=== PATIENT | female | born 1990 | race American Indian/Alaskan Native ===

== ENCOUNTER 2020-06-10 14:54 | Outpatient (CLI) | payer BC, OTHER ==
[2020-06-10 15:46] LABS: Blood Urea Nitrogen 8 mg/dL (7-17)
--- NOTE | 2020-06-10 17:37 | Cat Scan Report ---
CT PELVIS WITH IV CONTRAST INDICATION: OVARIAN MASS. COMPARISON: None available. TECHNIQUE: Axial CT images were obtained through the pelvis after 100 cc Omnipaque [address] scans at this location are performed using CT dose reduction for ALARA by means of automated exposure cont rol. FINDINGS: BOWEL: Normal. APPENDIX: Normal. PERITONEUM: No free fluid. No free air. No fluid collection. LYMPH NODES: No significant adenopathy. ARTERIES: No significant abnormality. VEINS: No significant abnormality. URINARY BLADDER: Normal. REPRODUCTIVE ORGANS: A hyperdense uterine fundal mass measures 5.7 x 5.1 cm on image 55 of series 2. A septated right ovarian cyst measures 6.5 x 4.7 cm on image 50 of series 2. No other significant abn ormality. ADDITIONAL FINDINGS: None. SKELETAL SYSTEM: No acute abnormality. IMPRESSION: 1. Probable uterine fibroid as above. 2. Septated right ovarian cyst as above is favored to be benign in a patient of this age. MRI of the pelvis with and without contrast may be helpful for further characterization. Otherwise, a follow-up pelvic ultrasound in one year is recommended. Signer Name: Juan Osorio MD Signed: 06/10/2020 5:33 PM Workstation Name: [id number]
== END 2020-06-10 14:55 | disposition home or self-care (01) ==
LOC: CT 14:54
PROVIDERS: ATTEND Obstetrics & Gynecology
DX: D25.9 Leiomyoma of uterus, unspecified (principal); N83.201 Unspecified ovarian cyst, right side
CPT/HCPCS: 36415; 72193; 82565; 84520; Q9967

== ENCOUNTER 2020-07-05 09:05 | Day surgery (SDC) | payer BC, OTHER ==
[2020-07-01 13:48] LABS: Hematocrit 30.1 % (30.3-42.9); Hemoglobin 9.6 gm/dl (10.1-14.3); Mean Corpuscular HGB Conc 32 % (30-34); Mean Corpuscular Volume 76 fl (79-97); Platelet Count 325 K/mm3 (140-440); Red Blood Count 3.98 M/mm3 (3.65-5.03)
[2020-07-01 13:53] LABS: Red Cell Distribution Width 22.8 % (13.2-15.2)
--- NOTE | 2020-07-04 17:36 | History and Physical Report ---
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 Operations: Hysteroscopy: (2014) with polypectomy benign D&C: (2014) Oral Abnormal PAP: negative Infection History HIV Risk Eval: no Hx of STD: None Active Medications (reviewed today): DOCUSATE SODIUM 100 MG ORAL CAPSULE (DOCUSATE SODIUM) 1 tab po daily SAMBUCUS ELDERBERRY 50 MG/5ML ORAL SYRUP (BLACK ELDERBERRY) VITAMIN D (CHOLECALCIFEROL) 25 MCG (1000 UT) ORAL CAPSULE (CHOLECALCIFEROL) Current Allergies (reviewed today): No known allergies Past Medical History: Allergies-seasonal Past Surgical History: Reviewed history from 12/26/2018 and no changes required: Hysteroscopy: (2014) with polypectomy benign D&C: (2014) Oral Family History Summary: Reviewed history Last on 03/23/2020 and no changes required:07/04/2020 Other Family Member - Has No Family History of Uterine Cancer - Entered On: 01/23/2019 Other Family Member - Has No Family History of Small Bowel Cancer - Entered On: 01/23/2019 Other Family Member - Has No Family History of Stomach Cancer - Entered On: 01/23/2019 Other Family Member - Has No Family History of Pancreatic Cancer - Entered On: 01/23/2019 Other Family Member - Has No Family History of Ovarvian Cancer - Entered On: 01/23/2019 Other Family Member - Has No Family History of Kidney/Urinary Tract Cancer - Entered On: 01/23/2019 Other Family Member - Has No Family History of Spontaneous DVT-PE - Entered On: 01/23/2019 Other Family Member - Has No Family History of Brain Cancer - Entered On: 01/23/2019 Other Family Member - Has No Family History of Breast Cancer - Entered On: 01/23/2019 Other Family Member - Has No Family History of Biliary Tract Cancer - Entered On: 01/23/2019 Father - Has Family History Colon Cancer - Entered On: 12/26/2018 General Comments - FH: MGM cancer Social History: Reviewed history from 12/26/2018 and no changes required: Patient is single Smoking History: Patient currently smokes every day. Patient has been counseled to quit. Risk Factors: Smoked Tobacco Use: Current every day smoker Cigars: Yes -- 2 a day per week Smokeless Tobacco Use: Never Counseled to quit/cut down: yes Passive smoke exposure: no Drug use: no HIV high-risk behavior: no Alcohol use: yes Exercise: no Seatbelt use: 100 % Previous Tobacco Use: Signed On 03/23/2020 Smoked Tobacco Use: Current every day smoker Cigars: Yes -- 5 per week Smokeless Tobacco Use: Never Counseled to quit/cut down: yes Passive smoke exposure: no Drug use: no HIV high-risk behavior: no Caffeine use: 1 drinks per day Previous Alcohol Use: Signed On 03/23/2020 Alcohol use: yes Type: occ Drinks per day: social Exercise: no Seatbelt use: 100 % PAP Smear History: Date of Last PAP Smear: 03/28/2020 Physical Exam Appearance: well developed, well nourished, no acute distress Other Exams Lungs: no rales, rhonchi, or wheezes Heart: S1, S2, no murmur, rub, or gallop Genitourinary Exam Uterus: deferred for EUA Impression & Recommendations: Problem # 1: Endometrial mass (ICD-236.0) (GHL65-N84.0) Diagnosis explained to patient . Questions answered. Discussed with patient various medical and surgical therapies common for treatment: Hormonal/medical therapy,endometrial ablation or hysterectomy. She desires conservative surgical intervention Consent reviewed and signed . The risks and alternatives for this surgery were reviewed with the patient. She was informed of possible bleeding, infection, iuterine perforation, njury to bowel, bladder, ureters or other adjacent organs. The patient was instructed/informed the following: The normal length of hospital stay for this procedure. Nothing to eat or drink after midnight the evening prior to surgery. . Pre-op instruction sheets given. The usual discomforts associated with this procedure were detailed. Proper use of pain medicines was reviewed. Patient was given ample opportunity to have all her questions answered before signing infor med consent. Problem # 2: Ovarian cyst (ICD-625.8) (BOL97-E09.89) Diagnosis and anticipated procedure explained, will proceed with laparoscopy removal Consent reviewed and signed . Possible laparotomy explained to patient. The risks and alternatives for this surgery were reviewed with the patient. Clear liquids the day before surgery. Fleets enema the day prior to surgery. Pre-op instruction sheets given. Wound care instructions given. Infection precautions reviewed, patient to call for any signs or symptoms of infection. The usual discomforts associated with this procedure were detailed. Proper use of pain medicines was reviewed. Patient was given ample opportunity to have all her questions answered before signing informed consent. Problem # 3: Menometrorrhagia (ICD-626.2) (PND17-K89.1) She desires fertility.Diagnosis explained to patient . Questions answered. Discussed with patient various medical and surgical therapies common for treatment: Hormonal/medical therapy,endometrial ablation or hysterectomy. 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) (GBD70-E03.0) Continue irion daily Medications and Allergies Allergies Allergy/AdvReac Type Severity Reaction Status Date / Time No Known Allergies Allergy Unverified 06/28/20 16:24 Home Medications Medication Instructions Recorded Confirmed Last Taken Type No Known Home Medications [No 06/28/20 06/28/20 Unknown History Reported Home Medications] Active Meds: Active Medications Cefazolin Sodium (Ancef/Sterile Water 2 Gm/20 Ml) 2 gm in 20 mls @ 80 mls/hr IV PREOP NR; Protocol Exam Vital Signs Temp Pulse Resp BP Pulse Ox 98.5 F 86 18 135/73 100 07/01/20 13:30 07/01/20 13:30 07/01/20 13:30 07/01/20 13:30 07/01/20 13:30 Results - Labs 07/01/20 13:35 Assessment and Plan - Patient Problems (1) Menometrorrhagia Status: Acute (2) Ovarian cyst Status: Acute Qualifiers: Laterality: unspecified laterality Qualified Code(s): N83.209 - Unspecified ovarian cyst, unspecified side (3) Anemia Status: Chronic (4) Endometrial mass Status: Acute
[~2020-07-05 09:05] MED LIST: BACTERIOSTATIC SODIUM CHLORIDE 0.9% 30 ML VIAL INFILTRATI ONE; LACTATED RINGERS 1,000 ML IV SCH; ceFAZolin/Water 2 GM/20 ML 2 GM/20 ML SYRINGE IV NR
[2020-07-05] MEDS ORDERED: HYDROmorphone 1 MG/1 ML INJ IV PRN ×2 (09:53)
[2020-07-05] MEDS ORDERED: ONDANSETRON 4 MG/2 ML INJ IV PRN (09:53)
--- NOTE | 2020-07-05 09:55 | Anesthesia Day of Surgery ---
Anesthesia Day of Surgery - Day of Surgery Patient Examined: Yes Patient H&P Reviewed: Yes Patient is NPO: Yes
--- NOTE | 2020-07-05 09:56 | Anesthesia Consultation ---
Anesthesia Consult and Med Hx Date of service: 07/05/20 - Airway Anesthetic Teeth Evaluation: Crowns ROM Head & Neck: Adequate Mental/Hyoid Distance: Adequate Mallampati Class: Class II Intubation Access Assessment: Good - Pre-Operative Health Status ASA Pre-Surgery Classification: ASA2 Proposed Anesthetic Plan: General - Pulmonary Hx Smoking: Yes - Central Nervous System Hx Psychiatric Problems: No - Gastrointestinal Hx Gastroesophageal Reflux Disease: Yes (Occasional) - Hematic Hx Anemia: Yes Hx Sickle Cell Disease: No - Other Systems Hx Alcohol Use: Yes (Occas) Hx Cancer: No Hx Obesity: Yes
[2020-07-05] MEDS ORDERED: MIDAZOLAM 2 MG/2 ML INJ IV NR (10:00)
[2020-07-05] MEDS ORDERED: propofoL 200 MG/20 ML VIAL IV ONE (10:01)
[2020-07-05] MEDS ORDERED: LIDOCAINE MPF (2%) 20 MG/1 ML VIAL 5 ML ONE (10:01)
[2020-07-05] MEDS ORDERED: KETOROLAC 30 MG/1 ML INJ ONE (10:12)
[2020-07-05] MEDS ORDERED: ROCURONIUM 50 MG/5 ML INJ IV ONE ×2 (10:18→11:26)
[2020-07-05] MEDS ORDERED: dexAMETHasone 20 MG/5 ML VIAL ONE (10:36)
[2020-07-05] MEDS ORDERED: ONDANSETRON 4 MG/2 ML INJ ONE (10:36)
[2020-07-05] MEDS ORDERED: BUPIVACAINE/PF (0.5%) 5 MG/1 ML 30 ML VIAL INFILTRATI ONE ×2 (11:25→12:00)
[2020-07-05] MEDS ORDERED: .SODIUM CHLORIDE 0.9% IRRIG SOLN 3000 ML IR ONE (11:30)
[2020-07-05] MEDS ORDERED: LACTATED RINGERS 1,000 ML ONE (12:03)
[2020-07-05] MEDS ORDERED: NEOSTIGMINE 10MG/10 ML INJ MDV ONE (12:19)
[2020-07-05] MEDS ORDERED: GLYCOPYRROLATE 0.4 MG/2 ML INJ ONE (12:19)
--- NOTE | 2020-07-05 12:39 | Operative Report ---
Operative Report Operative Report: Date: 07/05/2020 PREOPERATIVE DIAGNOSES: 1. Menometrorrhagia 2. Endometrial mass 3. Ovarian cyst POSTOPERATIVE DIAGNOSES: 1. Menometrorrhagia 2. Endometrial polyp 3. Right ovarian endometrioma 4. Pelvic endometriosis 5. Pelvic adhesions PROCEDURE PERFORMED: 1. Hysteroscopy. 2. Dilation and curettage (D&C) 3. Hysteroscopic polypectomy 4. Dilation and curettage 5. Operative laparoscopy 6. Aspiration of right ovarian endometrioma 7. Fulguration of endometriosis 8. Lysis of pelvic adhesions ANESTHESIA: General ESTIMATED BLOOD LOSS: Less than minimal cc. Driving School Instructor: Jes Lloyd Distention fluid: Normal saline Deficit: Less than 100 mL INDICATIONS: This is a 30-year-old female that presents above preop diagnosis. PROCEDURE: The patient was seen in the preoperative suite. Expected procedure and postoperative course discussed with her. She was taken to the operative suite where general anesthesia was performed. She was placed in a dorsal lithotomy position. She was prepped and draped in the normal sterile fashion. Timeout was performed. Her bladder was drained with the red Perez catheter which produced approximately 100 cc of clear yellow urine using a red rubber catheter. A bivalve operative speculum was placed in the vagina. The cervix and vagina were grossly normal with no obvious masses or deformities and the anterior lip of the cervix was grasped with the single-tooth tenaculum. The uterus was sounded to ~10 cm. The cervix was progressively dilated to allow the diagnostic hysteroscope. Under direct visualization, the ostia were within normal limits. The endometrial lining appeared slightly thickened, however, there was no obvious evidence of malignancy. Posterior lower uterine segment polyps were noted. Using the MyoSure device the polyps were removed. The hysteroscope was removed and a small sharp curette was placed intrauterine very carefully using anterior wall for guidance. Endometrial curettings were obtained. The endometrial sampling was placed on Telfa pad and sent to Pathology for evaluation, permanent. The hysteroscope was introduced again, no evidence of perforation was noted. At this point procedure was ended. The cervix was found to be hemostatic. A Figueroa catheter was placed in the bladder with drainage of clear yellow urine. The Sargis uterine manipulator to be placed without difficulty. The speculum and clamp were removed. Sterile gloves were placed and attention was turned to the abdomen. An supraumbilical incision was made and a 5 mm bladeless Optiview trocar was placed with laparoscope and camera inserted. No obvious bowel, bladder, ureteral or major vascular injury was noted. The abdomen was insuf flated. She was then placed in Trendelenburg position. Grossly normal uterus , tubes and left ovary were noted. Then an incision was made approximately 2 cm superior to the symphysis pubis in the midline. An 5 mm bladeless trocar was introduced under the direct visualization. Again no obvious. Or ureters, bladder, ureteral or major vascular injury was noted. The uterus was elevated and the right ovary was noted to be adhered to the pelvic sidewall and posterior cul-de-sac. An additional trocar was placed in the right midclavicular lower abdominal region under direct visualization through an incision. Approximately 60 cc of thick dark fluid consistent with an endometrioma was aspirated. With further manipulation some of the adhesions were lysed however concern for injury to her ureter prohibited any further dissection at this time. She was also noted to have endometriosis involving both uterosacral ligaments. Fulguration of the implants was performed. No bowel bladder ureteral or major vascular injury was noted. The pelvis was then irrigated with warm normal saline. The ovary was noted to be hemostatic. The CO2 was released under direct visualization to ensure hemostasis. Hemostasis was noted. At which point the procedure was ended. The 5 mm trochars were removed under direct visualization hemostasis was noted. The CO2 was then released. The supraumbilical 5 mm trocar was removed. The incisions were infused with half percent Marcaine without epinephrine. The incisions were reapproximated using 4-0 Vicryl in a subcuticular manner. Hemostasis was noted. Attention was turned to the vagina where the Sargis uterine manipulator was removed. Hemostasis was noted. Figueroa catheter was removed. The total of 400 mL of clear urine in the Figueroa bag. Patient was taken to recovery room in stable condition.
--- NOTE | 2020-07-05 12:53 | Discharge Summary ---
Providers - Providers Date of discharge: 07/05/20 Attending physician: KATHLEEN GLASS Primary care physician: YUDITH ANDRADE Hospitalization Condition: Good Procedures: See operative note Hospital course: Normal Disposition: - TO HOME OR SELFCARE Final Discharge Diagnosis (Prints w/discharge instructions): 1. Menometrorrhagia. 2. Endometrial polyp. 3. Right ovarian endometrioma. 4. Pelvic endometriosis. 5. Pelvic adhesions - Discharge Diagnoses (1) Menometrorrhagia Status: Acute (2) Ovarian cyst Status: Resolved Qualifiers: Laterality: unspecified laterality Qualified Code(s): N83.209 - Unspecified ovarian cyst, unspecified side (3) Anemia Status: Chronic (4) Endometrial mass Status: Resolved (5) Endometriosis Status: Chronic Core Measure Documentation - Palliative Care Palliative Care/ Comfort Measures: Not Applicable - Core Measures Any of the following diagnoses?: none Exam - Constitutional Vitals: Temp Pulse Resp BP Pulse Ox 97.6 F 54 L 12 119/52 100 07/05/20 12:35 07/05/20 12:45 07/05/20 12:45 07/05/20 12:45 07/05/20 12:45 General appearance: Present: no acute distress - Respiratory Respiratory effort: normal - Cardiovascular Rhythm: regular - Psychiatric Psychiatric: appropriate mood/affect, intact judgment & insight, memory intact, cooperative Plan Activity: other (No sex. No driving for 72 hours.) Weight Bearing Status: Full Weight Bearing Diet: regular Wound: open to air, keep clean and dry Special Instructions: no heavy lifting (Greater than 25 pound) Follow up with: YUDITH ANDRADE MD [Primary Care Provider] - 7 Days KATHLEEN GLASS MD [Staff Physician] - (As scheduled) Prescriptions: Ibuprofen [Motrin 800 MG tab] 800 mg PO Q8HR PRN #30 tablet PRN Reason: Pain, Moderate (4-6) oxyCODONE /ACETAMINOPHEN [Percocet 5/325 mg] 1 tab PO Q6HR PRN #7 tablet PRN Reason: Pain
[2020-07-05] MEDS ORDERED: oxyCODONE /ACETAMINOPHEN 5-325MG TAB PO PRN (13:01)
[2020-07-05 13:56] VITALS: BP 122/58
--- NOTE | 2020-07-05 14:08 | Post Anesthesia Evaluation ---
- Post Anesthesia Evaluation Patient Participated: Yes Airway Patent: Yes Stable Respiratory Function: Yes Nausea/Vomiting: No Temp > 96.8F: Yes Pain Manageable: Yes Adequeate Hydration: Yes Anesthesia Complications: No Block Receding Appropriately: Not Applicable Patient on Ventilator: No
== END 2020-07-05 13:45 | disposition home or self-care (01) ==
LOC: OR 09:05
PROVIDERS: ATTEND Obstetrics & Gynecology
DX: N92.1 Excessive and frequent menstruation with irregular cycle (principal); N83.201 Unspecified ovarian cyst, right side; N84.0 Polyp of corpus uteri; N80.9 Endometriosis, unspecified; N73.6 Female pelvic peritoneal adhesions (postinfective); D64.9 Anemia, unspecified; K21.9 Gastro-esophageal reflux disease without esophagitis; Z20.822 Contact with and (suspected) exposure to COVID-19; Z72.89 Other problems related to lifestyle; F17.210 Nicotine dependence, cigarettes, uncomplicated; Z79.899 Other long term (current) drug therapy; Z98.890 Other specified postprocedural states
CPT/HCPCS: 36415; 49322; 58558; 58662; 81025; 85027; 88112; 88305; A4217; J0690; J1100; J1170; J1885; J2250; J2405; J2704; J2710; J7120; U0003

== ENCOUNTER 2020-07-12 16:16 | Emergency (ER) | payer BC, OTHER | END 2020-07-12 17:02 | disposition left against medical advice (07) | LOC: ED 16:16 | DX: D64.9 Anemia, unspecified (principal); Z53.21 Procedure and treatment not carried out due to patient leaving prior to being seen by health care provider ==